=== PATIENT | female | born 1975 | race Two or more races ===

== ENCOUNTER 2023-10-04 22:55 | Emergency (ER) | payer OTHER ==
[2023-10-04 23:45] VITALS: TEMP 98.8
[2023-10-05] MEDS: TraMADol HCL 50 MG TABLET PO ONE (01:51)
[2023-10-05 02:16] LABS: BASOPHILS % (AUTO) 0.3 % (0.0-2.0); HEMATOCRIT 24.7 % (36-46); HEMOGLOBIN 8.4 g/dL (12.0-16.0); LYMPHOCYTES # (AUTO) 3.2 K/uL (1.0-4.8); LYMPHOCYTES % (AUTO) 47.6 % (22.0-44.0); MEAN CORPUSCULAR HEMOGLOBIN 36.4 pg (26.0-34.0); MEAN CORPUSCULAR HGB CONC 33.9 G/dL (31.0-37.0); MEAN CORPUSCULAR VOLUME 107 fL (80-100); MONOCYTES # (AUTO) 0.4 K/uL (0.1-1.0); MONOCYTES % (AUTO) 6.7 % (2.0-9.0); NEUTROPHILS % (AUTO) 44.4 % (40.0-70.0); RED BLOOD CELL COUNT(AUTO) 2.31 MIL/uL (4.00-5.20); RED CELL DISTRIBUTION WIDTH 17.6 % (11.5-14.5); WHITE BLOOD COUNT (AUTO) 6.7 K/uL (4.5-11.0)
[2023-10-05 02:22] LABS: ANION GAP 7 mmol/L (8-16); CALCIUM, TOTAL 8.3 mg/dL (8.8-10.5); CARBON DIOXIDE 27 mmol/L (22-29); CHLORIDE 104 mmol/L (98-107); CREATININE 3.04 mg/dL (0.60-1.30); GLOMERULAR FILTR. RATE CALC 16 mL/min (>60); GLUCOSE,RANDOM 71 mg/dL (70-110); POTASSIUM 3.7 mmol/L (3.5-5.1); SODIUM SERUM 138 mmol/L (136-145); UREA NITROGEN, BLOOD 32 mg/dL (7-18)
[2023-10-05 02:30] LABS: ALANINE AMINOTRANSFERASE 7 U/L (12-78); ALBUMIN 2.3 g/dL (3.4-5.0); ALKALINE PHOSPHATASE 91 U/L (46-116); ASPARTATE AMINOTRANSFERASE 42 U/L (15-37); BILIRUBIN,TOTAL 0.5 mg/dL (0.1-1.0); TOTAL PROTEIN, SERUM 7.5 g/dL (6.4-8.2)
[2023-10-05 02:49] LABS: LACTIC ACID 0.8 mmol/L (0.4-2.0)
[2023-10-05 03:01] LABS: PLATELET COUNT (AUTO) 62 K/uL (150-450); RBC MORPHOLOGY COMMENT ABNORMAL RBC MORPH
[2023-10-05 03:03] VITALS: BP 121/73; PULSE 78; RESP 16
== END 2023-10-05 04:15 | disposition home or self-care (01) ==
LOC: EMS 22:56
DX: S93.402A Sprain of unspecified ligament of left ankle, initial encounter (principal); S09.90XA Unspecified injury of head, initial encounter; W19.XXXA Unspecified fall, initial encounter; Y93.89 Activity, other specified; Y92.89 Other specified places as the place of occurrence of the external cause; Y99.8 Other external cause status
CPT/HCPCS: 70450; 72125; 73521; 80053; 83605; 85025; 87040; 99284

== ENCOUNTER 2024-02-02 12:10 | Inpatient (IN) | payer OTHER ==
[~2024-02-02] VITALS: Ht 165.1 cm; Wt 58.0 kg
[2024-02-02 12:47] LABS: BASOPHILS % (AUTO) 0.7 % (0.0-2.0); EOSINOPHILS % (AUTO) 3.6 % (1.0-6.0); HEMOGLOBIN 10.4 g/dL (12.0-16.0); LYMPHOCYTES # (AUTO) 3.2 K/uL (1.0-4.8); MEAN CORPUSCULAR HEMOGLOBIN 33.2 pg (26.0-34.0); MEAN CORPUSCULAR HGB CONC 32.6 G/dL (31.0-37.0); MEAN CORPUSCULAR VOLUME 102 fL (80-100); MONOCYTES # (AUTO) 0.7 K/uL (0.1-1.0); MONOCYTES % (AUTO) 7.7 % (2.0-9.0); NEUTROPHILS # (AUTO) 4.3 K/uL (1.8-7.7); PLATELET COUNT (AUTO) 279 K/uL (150-450); RED BLOOD CELL COUNT(AUTO) 3.13 MIL/uL (4.00-5.20); RED CELL DISTRIBUTION WIDTH 18.9 % (11.5-14.5); WHITE BLOOD COUNT (AUTO) 8.5 K/uL (4.5-11.0)
[2024-02-02 13:06] LABS: RBC MORPHOLOGY COMMENT ABNORMAL RBC MORPH
[2024-02-02 13:10] LABS: ALCOHOL, BLOOD (SERUM) < 3 mg/dL (0-10)
[2024-02-02 13:40] LABS: ANION GAP 12 mmol/L (8-16); CARBON DIOXIDE 21 mmol/L (22-29); CHLORIDE 108 mmol/L (98-107); CREATININE 1.62 mg/dL (0.60-1.30); GLUCOSE,RANDOM 92 mg/dL (70-110); SODIUM SERUM 141 mmol/L (136-145); UREA NITROGEN, BLOOD 35 mg/dL (7-18)
[2024-02-02 13:41] LABS: CALCIUM, TOTAL 9.1 mg/dL (8.8-10.5); GLOMERULAR FILTR. RATE CALC 34 mL/min (>60)
[2024-02-02 13:44] LABS: POTASSIUM 6.1 mmol/L (3.5-5.1)
[2024-02-02] MEDS: SODIUM CHLORIDE 0.9% 1,000 ML IV ONE ×2 (14:19→18:30)
[2024-02-02] MEDS: DEXTROSE 50%-WATER 25 GM/50 ML SYRINGE IVP ONE (14:20)
[2024-02-02] MEDS: INSULIN REGULAR, HUMAN 100 UNITS/ML IVP ONE (14:21)
[2024-02-02] MEDS: ALBUTEROL SULFATE 2.5 MG/0.5 ML 5 ML NEB SOLUTION NEB ONE (14:29)
[2024-02-02 14:36] LABS: GLUCOMETER DEV NAME(LOC) ER.7; GLUCOSE,POINT OF CARE 84 MG/DL (70-110)
[2024-02-02 16:00] LABS: GLUCOMETER DEV NAME(LOC) ER.7; GLUCOSE,POINT OF CARE 235 MG/DL (70-110)
[2024-02-02] MEDS ORDERED: ACETAMINOPHEN 325 MG TABLET PO PRN (16:00)
[2024-02-02] MEDS: SODIUM POLYSTYRENE SULFONATE 15 GM/60 ML SUSPENSION BOTTLE PO ONE (16:00)
[2024-02-02] MEDS ORDERED: MAGNESIUM HYDROXIDE SUSPENSION 30 ML UDCUP PO PRN (16:00)
[2024-02-02] MEDS ORDERED: ZOLPIDEM TARTRATE 5 MG TABLET PO PRN (16:00)
[2024-02-02] MEDS ORDERED: MORPHINE SULFATE 2 MG/ML SYRINGE IVP PRN (16:00)
[2024-02-02] MEDS ORDERED: ONDANSETRON HCL 4 MG/2 ML VIAL IVP PRN (16:00)
[2024-02-02] MEDS ORDERED: BISACODYL 10 MG RECTAL RECTAL SUPPOSITORY PR PRN (16:00)
[2024-02-02 16:41] LABS: PH,URINE DRUG SCREEN 5.5 (5.0-8.0)
[2024-02-02 16:55] LABS: ALCOHOL, URINE DRUG SCREEN NEGATIVE (NEGATIVE); AMPHET/METH SCREEN,URINE NEGATIVE (NEGATIVE); BARBITURATE SCREEN, URINE NEGATIVE (NEGATIVE); BENZODIAZEPINES SCREEN,URINE NEGATIVE (NEGATIVE); CANNABINOID SCREEN,URINE NEGATIVE (NEGATIVE); COCAINE SCREEN,URINE NEGATIVE (NEGATIVE); METHADONE SCREEN, URINE NEGATIVE (NEGATIVE); OPIATE SCREEN,URINE NEGATIVE (NEGATIVE); PHENCYCLIDINE SCREEN,URINE NEGATIVE (NEGATIVE)
[2024-02-02] MEDS: HEPARIN SODIUM,PORCINE 5,000 UNITS/ML VIAL SQ SCH (18:30)
[2024-02-02 19:35] VITALS: BP 119/74; PULSE 79; RESP 18; TEMP 97.4; O2SAT 98
[2024-02-02] MEDS: MIRTAZAPINE 15 MG TABLET PO SCH (21:00)
[2024-02-02] MEDS: DOCUSATE SODIUM 100 MG CAPSULE PO SCH (21:00)
[2024-02-03] MEDS: SODIUM POLYSTYRENE SULFONATE 15 GM/60 ML SUSPENSION BOTTLE PR ONE (00:45)
[2024-02-03 07:42] LABS: BASOPHILS % (AUTO) 0.6 % (0.0-2.0); EOSINOPHILS % (AUTO) 7.6 % (1.0-6.0); HEMATOCRIT 29.1 % (36-46); HEMOGLOBIN 9.6 g/dL (12.0-16.0); LYMPHOCYTES # (AUTO) 3.4 K/uL (1.0-4.8); LYMPHOCYTES % (AUTO) 51.4 % (22.0-44.0); MEAN CORPUSCULAR HEMOGLOBIN 34.7 pg (26.0-34.0); MEAN CORPUSCULAR VOLUME 105 fL (80-100); MONOCYTES # (AUTO) 0.5 K/uL (0.1-1.0); MONOCYTES % (AUTO) 7.8 % (2.0-9.0); NEUTROPHILS # (AUTO) 2.1 K/uL (1.8-7.7); NEUTROPHILS % (AUTO) 32.6 % (40.0-70.0); PLATELET COUNT (AUTO) 236 K/uL (150-450); RED BLOOD CELL COUNT(AUTO) 2.77 MIL/uL (4.00-5.20); RED CELL DISTRIBUTION WIDTH 18.4 % (11.5-14.5); WHITE BLOOD COUNT (AUTO) 6.6 K/uL (4.5-11.0)
[2024-02-03 08:00] VITALS: BP 122/69; PULSE 72; RESP 17; TEMP 97.8; O2SAT 98
[2024-02-03 08:06] LABS: CALCIUM, TOTAL 8.7 mg/dL (8.8-10.5); CREATININE 1.34 mg/dL (0.60-1.30); POTASSIUM 5.5 mmol/L (3.5-5.1)
[2024-02-03 08:37] LABS: RBC MORPHOLOGY COMMENT ABNORMAL RBC MORPH
[2024-02-03] MEDS: PANTOPRAZOLE SODIUM 40 MG DR TABLET PO SCH (09:00)
[2024-02-03] MEDS: DIVALPROEX SODIUM 500 MG DR TABLET PO SCH (09:00)
[2024-02-03] MEDS: SERTRALINE HCL 100 MG TABLET PO SCH (09:00)
[2024-02-03 13:10] VITALS: BP 112/82; PULSE 78; RESP 14; TEMP 97.4; O2SAT 97
[2024-02-03 13:21] LABS: GLUCOMETER DEV NAME(LOC) 5N.1D; GLUCOSE,POINT OF CARE 83 MG/DL (70-110)
[2024-02-03] MEDS: SODIUM CHLORIDE 0.45% 1,000 ML IV ONE (13:41)
[2024-02-03 16:30] VITALS: BP 104/64; PULSE 80; RESP 17; TEMP 98.2; O2SAT 97
[2024-02-03] MEDS: SODIUM ZIRCONIUM CYCLOSILICATE 5 GM POWDER PACKET PO ONE (20:34)
[2024-02-04 00:06] VITALS: BP 129/71; PULSE 86; RESP 16; TEMP 98.1; O2SAT 97
[2024-02-04 00:51] LABS: GLUCOMETER DEV NAME(LOC) 5N.2C; GLUCOSE,POINT OF CARE 92 MG/DL (70-110)
[2024-02-04 00:51] LABS: GLUCOMETER DEV NAME(LOC) 5N.2C; GLUCOSE,POINT OF CARE 134 MG/DL (70-110)
[2024-02-04 03:08] VITALS: BP 134/72; PULSE 89; RESP 17; TEMP 97.8; O2SAT 100
[2024-02-04 06:36] LABS: CALCIUM, TOTAL 9.2 mg/dL (8.8-10.5); CREATININE 1.31 mg/dL (0.60-1.30); POTASSIUM 5.9 mmol/L (3.5-5.1)
[2024-02-04 06:37] LABS: BASOPHILS % (AUTO) 0.4 % (0.0-2.0); EOSINOPHILS % (AUTO) 10.8 % (1.0-6.0); HEMATOCRIT 28.9 % (36-46); HEMOGLOBIN 9.8 g/dL (12.0-16.0); LYMPHOCYTES # (AUTO) 2.8 K/uL (1.0-4.8); LYMPHOCYTES % (AUTO) 49.6 % (22.0-44.0); MEAN CORPUSCULAR HEMOGLOBIN 34.9 pg (26.0-34.0); MEAN CORPUSCULAR HGB CONC 33.8 G/dL (31.0-37.0); MEAN CORPUSCULAR VOLUME 104 fL (80-100); MONOCYTES # (AUTO) 0.5 K/uL (0.1-1.0); NEUTROPHILS # (AUTO) 1.8 K/uL (1.8-7.7); NEUTROPHILS % (AUTO) 31.2 % (40.0-70.0); PLATELET COUNT (AUTO) 237 K/uL (150-450); RED BLOOD CELL COUNT(AUTO) 2.79 MIL/uL (4.00-5.20); RED CELL DISTRIBUTION WIDTH 18.5 % (11.5-14.5); WHITE BLOOD COUNT (AUTO) 5.7 K/uL (4.5-11.0)
[2024-02-04 07:39] VITALS: BP 128/68; PULSE 80; RESP 18; TEMP 98; O2SAT 98
[2024-02-04 08:10] LABS: RBC MORPHOLOGY COMMENT ABNORMAL RBC MORPH
[2024-02-04] MEDS: SODIUM POLYSTYRENE SULFONATE 15 GM/60 ML SUSPENSION BOTTLE PO ONE (11:00)
[2024-02-04 11:35] VITALS: BP 130/75; PULSE 90; RESP 18; TEMP 98.2; O2SAT 99
[2024-02-04 15:19] VITALS: BP 125/75; PULSE 80; RESP 18; TEMP 98.1; O2SAT 98
[2024-02-04 19:49] VITALS: BP 139/77; PULSE 88; RESP 18; TEMP 98.2; O2SAT 100
[2024-02-05 00:41] VITALS: BP 144/76; PULSE 86; RESP 18; TEMP 97.9; O2SAT 100
[2024-02-05 02:40] VITALS: BP 140/71; PULSE 80; RESP 17; TEMP 98.1; O2SAT 99
[2024-02-05] MEDS: HYDROCODONE/ACETAMINOPHEN 5-325 MG TABLET PO PRN (02:44)
[2024-02-05 03:43] VITALS: BP 116/62; PULSE 84; RESP 18; TEMP 97.6; O2SAT 98
[2024-02-05 07:10] LABS: BASOPHILS % (AUTO) 0.5 % (0.0-2.0); EOSINOPHILS % (AUTO) 10.4 % (1.0-6.0); HEMATOCRIT 28.6 % (36-46); HEMOGLOBIN 9.5 g/dL (12.0-16.0); LYMPHOCYTES # (AUTO) 3.2 K/uL (1.0-4.8); LYMPHOCYTES % (AUTO) 54.3 % (22.0-44.0); MEAN CORPUSCULAR HEMOGLOBIN 35.1 pg (26.0-34.0); MEAN CORPUSCULAR HGB CONC 33.4 G/dL (31.0-37.0); MEAN CORPUSCULAR VOLUME 105 fL (80-100); MONOCYTES # (AUTO) 0.5 K/uL (0.1-1.0); MONOCYTES % (AUTO) 8.5 % (2.0-9.0); NEUTROPHILS # (AUTO) 1.6 K/uL (1.8-7.7); NEUTROPHILS % (AUTO) 26.3 % (40.0-70.0); PLATELET COUNT (AUTO) 228 K/uL (150-450); RED BLOOD CELL COUNT(AUTO) 2.72 MIL/uL (4.00-5.20); RED CELL DISTRIBUTION WIDTH 18.1 % (11.5-14.5)
[2024-02-05 07:17] VITALS: BP 130/78; PULSE 86; RESP 18; TEMP 98; O2SAT 99
[2024-02-05 07:56] LABS: CALCIUM, TOTAL 8.9 mg/dL (8.8-10.5); CREATININE 1.44 mg/dL (0.60-1.30); POTASSIUM 5.4 mmol/L (3.5-5.1)
[2024-02-05 08:20] LABS: RBC MORPHOLOGY COMMENT ABNORMAL RBC MORPH
[2024-02-05 11:20] VITALS: BP 119/76; PULSE 78; RESP 18; TEMP 98; O2SAT 95
[2024-02-05 20:01] LABS: GLUCOMETER DEV NAME(LOC) 5N.1D; GLUCOSE,POINT OF CARE 77 MG/DL (70-110)
[2024-02-05] MEDS: RisperiDONE 1 MG TABLET PO SCH (21:00)
[2024-02-05] MEDS: DIVALPROEX SODIUM 500 MG DR TABLET PO SCH (21:00)
[2024-02-05 21:31] VITALS: BP 117/73; PULSE 94; RESP 18; TEMP 98.3; O2SAT 100
[2024-02-06 00:31] LABS: GLUCOMETER DEV NAME(LOC) 5N.2C; GLUCOSE,POINT OF CARE 103 MG/DL (70-110)
[2024-02-06 06:07] VITALS: BP 130/77; PULSE 92; RESP 18; TEMP 97.7; O2SAT 100
[2024-02-06 06:26] LABS: GLUCOMETER DEV NAME(LOC) 5N.2C; GLUCOSE,POINT OF CARE 68 MG/DL (70-110)
[2024-02-06 06:50] LABS: GLUCOMETER DEV NAME(LOC) 5N.2C; GLUCOSE,POINT OF CARE 84 MG/DL (70-110)
[2024-02-06 08:26] VITALS: BP 122/75; PULSE 88; RESP 18; TEMP 97.9; O2SAT 100
[2024-02-06 08:34] LABS: CREATININE 1.24 mg/dL (0.60-1.30); POTASSIUM 5.1 mmol/L (3.5-5.1)
[2024-02-06 12:17] VITALS: BP 130/82; PULSE 86; RESP 18; TEMP 97.6; O2SAT 100
[2024-02-06 17:54] VITALS: BP 124/74; PULSE 93; RESP 18; TEMP 97.4; O2SAT 100
[2024-02-06 19:41] VITALS: BP 140/80; PULSE 96; RESP 19; TEMP 97.6; O2SAT 100
[2024-02-06 19:41] LABS: GLUCOMETER DEV NAME(LOC) 5N.2C; GLUCOSE,POINT OF CARE 115 MG/DL (70-110)
[2024-02-07 01:31] VITALS: BP 124/76; PULSE 88; RESP 18; TEMP 97.7; O2SAT 97
[2024-02-07 06:26] VITALS: BP 123/68; PULSE 89; RESP 18; TEMP 98.2; O2SAT 97
[2024-02-07 07:58] VITALS: BP 108/63; PULSE 96; RESP 19; TEMP 98; O2SAT 100
[2024-02-07 11:21] VITALS: BP 121/76; PULSE 104; RESP 18; TEMP 98.2; O2SAT 100
[2024-02-07] MEDS: SODIUM ZIRCONIUM CYCLOSILICATE 5 GM POWDER PACKET PO ONE (14:45)
[2024-02-07 15:00] VITALS: BP 124/70; PULSE 88; RESP 19; TEMP 98; O2SAT 99
[2024-02-07 20:24] VITALS: BP 111/63; PULSE 91; RESP 18; TEMP 98; O2SAT 97
[2024-02-08 00:35] VITALS: BP 119/78; PULSE 88; RESP 18; TEMP 97.8; O2SAT 98
[2024-02-08 06:38] VITALS: BP 129/69; PULSE 94; RESP 18; TEMP 97.9; O2SAT 98
[2024-02-08 07:53] VITALS: BP 121/62; PULSE 96; RESP 17; TEMP 98.2; O2SAT 97
[2024-02-08 11:30] VITALS: BP 128/78; PULSE 90; RESP 18; TEMP 98.3; O2SAT 98
[2024-02-08 15:59] VITALS: BP 127/74; PULSE 95; RESP 18; TEMP 98; O2SAT 96
[2024-02-08 16:10] LABS: CREATININE 1.49 mg/dL (0.60-1.30)
[2024-02-08] MEDS: SODIUM ZIRCONIUM CYCLOSILICATE 5 GM POWDER PACKET PO ONE (16:46)
[2024-02-09 01:08] VITALS: BP 123/71; PULSE 93; RESP 18; TEMP 97.9; O2SAT 99
[2024-02-09 04:39] VITALS: BP 126/74; PULSE 105; RESP 18; TEMP 97.9; O2SAT 97
[2024-02-09 08:09] LABS: CALCIUM, TOTAL 8.7 mg/dL (8.8-10.5); CREATININE 1.59 mg/dL (0.60-1.30); POTASSIUM 5.1 mmol/L (3.5-5.1)
[2024-02-09 08:40] VITALS: BP 144/79; PULSE 100; RESP 17; TEMP 98.2; O2SAT 99
[2024-02-09] MEDS: SODIUM CHLORIDE 0.9% 1,000 ML IV ONE (10:30)
[2024-02-09 11:55] VITALS: BP 118/72; PULSE 98; RESP 18; TEMP 98.2; O2SAT 99
[2024-02-09 15:11] VITALS: BP 133/76; PULSE 95; RESP 18; TEMP 98.2; O2SAT 98
[2024-02-09] MEDS ORDERED: SODI5POW3 PO (19:04)
== END 2024-02-09 20:21 | disposition home or self-care (01) | DRG 422 ==
LOC: EMS 12:10 → EDH 16:00 → 5N 17:20
PROVIDERS: ADMIT Internal Medicine; ATTEND Internal Medicine
PROC: GZ56ZZZ Individual Psychotherapy, Supportive (ICD-10-PCS; principal; 2024-02-03)
DX: E87.5 Hyperkalemia (principal); E86.0 Dehydration; N17.0 Acute kidney failure with tubular necrosis; E43 Unspecified severe protein-calorie malnutrition; D63.8 Anemia in other chronic diseases classified elsewhere; Z68.21 Body mass index [BMI] 21.0-21.9, adult; F20.9 Schizophrenia, unspecified; Z53.20 Procedure and treatment not carried out because of patient's decision for unspecified reasons; M79.671 Pain in right foot; M79.672 Pain in left foot; Z91.199 Patient's noncompliance with other medical treatment and regimen due to unspecified reason; I10 Essential (primary) hypertension
CPT/HCPCS: 80048; 80307; 82962; 84132; 85025; 93005; 99285; G0480; J1644; J1815; J7030